=== PATIENT | female | born 1985 ===

== ENCOUNTER 2019-11-04 09:51 | Outpatient (CLI) | payer MEDICAID ==
[~2019-11-04 09:51] MED LIST: NONE PER PT
== END 2019-11-04 23:59 | disposition home or self-care (01) ==
LOC: STAR 09:51
PROVIDERS: ATTEND Obstetrics & Gynecology Female Pelvic Medicine and Reconstructive Surgery
DX: Z02.9 Encounter for administrative examinations, unspecified (principal)

== ENCOUNTER 2019-11-08 07:29 | Day surgery (SDC) | payer MEDICAID ==
[~2019-11-08] VITALS: Ht 154.9 cm; Wt 106.0 kg
[~2019-11-08 07:29] MED LIST changes: +BUPIVACAINE/PF-EPI 0.25% 1:200K ONE; +GENTAMICIN 80 MG/2 ML ONE
[2019-11-08] MEDS ORDERED: LACTATED RINGERS 1,000 ML IV SCH (07:41)
[2019-11-08 07:54] VITALS: BP 126/88
[2019-11-08] MEDS ORDERED: SCOPOLAMINE PATCH, 1.5MG PATCH.TD72 TD ONE ×2 (08:00→08:30)
[2019-11-08] MEDS ORDERED: FAMOTIDINE 20 MG TABLET ONE (08:00)
[2019-11-08 08:14] LABS: HCG UR SG 1.025 (1.003-1.030)
[2019-11-08] MEDS ORDERED: FAMOTIDINE 20 MG TABLET PO ONE (08:30)
[2019-11-08] MEDS ORDERED: DEXAMETHASONE 4 MG/ML, 1ML ONE (08:50)
[2019-11-08] MEDS ORDERED: ROCURONIUM 10MG/ML,5ML ONE (08:50)
[2019-11-08] MEDS ORDERED: FENTANYL PF 250 MCG/5ML ONE (08:50)
[2019-11-08] MEDS ORDERED: LIDOCAINE-MPF 2% ,5ML ONE (08:50)
[2019-11-08] MEDS ORDERED: GLYCOPYRROLATE 0.2MG/1ML, 5ML ONE (08:50)
[2019-11-08] MEDS ORDERED: MIDAZOLAM 1 MG/ML, 2ML ONE (08:50)
[2019-11-08] MEDS ORDERED: PROPOFOL 10 MG/ML, 20ML ONE (08:50)
[2019-11-08] MEDS ORDERED: METOPROLOL 1 MG/ML, 5ML ONE (13:14)
[2019-11-08] MEDS ORDERED: CEFAZOLIN 1,000 MG ONE (13:14)
[2019-11-08] MEDS ORDERED: MORPHINE SULFATE 4 MG/ML, 1ML IVPush PRN (14:30)
[2019-11-08] MEDS ORDERED: hydrALAzine 20 MG/ML, 1ML IV PRN (14:30)
[2019-11-08] MEDS ORDERED: LABETALOL 5MG/ML, 20ML IV PRN (14:30)
[2019-11-08] MEDS ORDERED: HYDROcodone/APAP 7.5-325MG/15ML UDC PO PRN (14:30)
[2019-11-08] MEDS ORDERED: MIDAZOLAM 1 MG/ML, 2ML IV PRN (14:30)
[2019-11-08] MEDS ORDERED: DEXAMETHASONE 4 MG/ML, 1ML IV PRN (14:30)
[2019-11-08] MEDS ORDERED: ALBUTEROL/IPRATROPIUM 2.5MG/0.5MG, 3 ML NPPB PRN (14:30)
[2019-11-08] MEDS ORDERED: METOCLOPRAMIDE 5 MG/ML, 2ML IV PRN (14:30)
[2019-11-08] MEDS ORDERED: ONDANSETRON 2MG/ML, 2ML IV PRN (14:30)
[2019-11-08] MEDS ORDERED: FENTANYL PF 100 MCG/2ML IV PRN (14:30)
[2019-11-08] MEDS ORDERED: KETOROLAC 30 MG/1 ML IV PRN (14:30)
[2019-11-08] MEDS ORDERED: OXYcodone 5 MG/5 ML ORAL.SOL UDC PO PRN (14:30)
[2019-11-08] MEDS ORDERED: MEPERIDINE/PF 25MG/ML,1ML IVPush PRN (14:30)
[2019-11-08] MEDS ORDERED: DIPHENHYDRAMINE 50 MG/ML, 1ML IVPush PRN (14:30)
[2019-11-08] MEDS ORDERED: EPHEDRINE 50 MG/ML, 1ML IM PRN (14:30)
[2019-11-08] MEDS ORDERED: EPHEDRINE 50 MG/ML, 1ML IVPush PRN (14:30)
[2019-11-08] MEDS ORDERED: HYDROmorphone 2 MG/ML, 1ML IVPush PRN (14:30)
[2019-11-08] MEDS ORDERED: KETOROLAC 30 MG/1 ML ONE (14:41)
[2019-11-08] MEDS ORDERED: FENTANYL PF 100 MCG/2ML ONE (14:44)
== END 2019-11-08 16:25 | disposition home or self-care (01) ==
LOC: OUT 07:29
PROVIDERS: ATTEND Obstetrics & Gynecology Female Pelvic Medicine and Reconstructive Surgery
DX: N94.10 Unspecified dyspareunia (principal); N39.46 Mixed incontinence; N81.89 Other female genital prolapse; N32.81 Overactive bladder; E66.01 Morbid (severe) obesity due to excess calories; Z68.43 Body mass index [BMI] 50.0-59.9, adult; Z90.710 Acquired absence of both cervix and uterus; Z87.891 Personal history of nicotine dependence; Z72.89 Other problems related to lifestyle
CPT/HCPCS: 57265; 57282; 57288; 81025; C1771; J0690; J1100; J1580; J1885; J2250; J2704; J3010